=== PATIENT | female | born 1960 | race Caucasian/White ===

== ENCOUNTER 2017-02-10 14:32 | Emergency (ER) | payer SELFPAY ==
--- NOTE | 2017-02-18 15:44 | ER ---
ADMIT: 02/10/2017 RM/LOC: ER [facility] MR#: [id number] [address] [id number] JENN PRIDE [address] [place] [address] Emergency Room Report SEX: F AGE: 56 : 1960 DATE: 02/10/2017 Jenn is a 56-year-old female who was in [place]. When she got back home, went to do something and sustained a fall where she injured her right wrist. It is deformed and she is right handed. REVIEW OF SYSTEMS: Negative. PAST MEDICAL HISTORY: Rheumatoid arthritis. She had C-sections and tubal ligation. MEDICATIONS: 1. She takes tramadol. 2. Methotrexate. 3. Folic acid. 4. Prednisone. 5. Hydrochloric acid. ALLERGIES: NO ALLERGIES. PHYSICAL EXAMINATION: VITAL SIGNS: Blood pressure is 136/65, pulse is 75, respirations 16, temp is 97.1, and O2 sats 100%. In spite of having a deformity in her right wrist, she has good pulses. She has good capillary refill, less than 5 seconds. I went ahead and I did a wrist block with Marcaine and put her on traction. Dr. Perez came and looked at the placement of the weights and the contraction for traction, and the wrist did look lined up appropriately, so we splinted her. She did receive medication in the form of morphine and Dilaudid and some Zofran. The patient is discharged with instructions to follow up with Dr. Lee for Ortho this week and continue on her medications from home. CLINICAL IMPRESSION: Radius and ulna fracture, right distal. Sugar-tong splint applied to the arm with a sling and follow up. JACKIE Balderas / Jaun Nelson MD / sabra JOB #: [id number] CC: Sid Perez MD, Attending Physician UNKNOWN, Family Physician
== END 2017-02-10 17:40 | disposition home or self-care (01) ==
LOC: ER 14:32
DX: S52.501A Unspecified fracture of the lower end of right radius, initial encounter for closed fracture (principal); S52.601A Unspecified fracture of lower end of right ulna, initial encounter for closed fracture; Z79.899 Other long term (current) drug therapy; Z98.890 Other specified postprocedural states; W01.0XXA Fall on same level from slipping, tripping and stumbling without subsequent striking against object, initial encounter